=== PATIENT | female | born 1970 | race Caucasian/White ===

== ENCOUNTER → 2016-12-29 | Outpatient (CLI) | payer MEDICARE, OTHER ==
[~2016-12-29] MED LIST: ALBUTEROL17 GM INH; ALLEGRA PO; AMITRIPTYLINE H50 MG PO; AMITRYPTYLINE PO; ATARAX PO; BACLOFEN10 MG PO; BROMPHED DM PO; CIPRO PO; DICLOFENAC PO; DOXYCYCLINE PO; FERRO-TIME325 MG PO; FLEXERIL PO; FLEXERIL10 M1 PO; FLEXERIL10 MG PO; GLIPIZIDE10 MG PO; GLIPIZIDE10 MG/BOTT PO; GLUCOPHAGE XR500 MG PO; GLUCOPHAGE500 M1; GLUCOPHAGE500 MG PO; GLUCOTROL PO; HUMULIN 70/30 PE3 ML SUBQ; HYDROCODONE/HO240 ML PO; LANTUS INSULIN; LANTUS100 U/M1 SQ; LANTUS100 U/ML SUBQ; LEVAQUIN PO; LIPITOR40 MG PO; LORTAB 5/500 TA1 TA1 PO; MEDROL4 MG/DOSE- PO; METFORMIN HCL500 M1 PO; METFORMIN PO; MONTELUKAST SOD10 MG PO; NEURONTIN300 MG PO; NEURONTIN600 MG PO; OMEPRAZOLE40 M1 PO; PHENERGAN DM1 ML PO; PHENERGAN25 MG PO; PREDNISONE PO; PREDNISONE5 M1 PO; PRILOSEC PO; PRILOSEC20 MG PO; PROAIR HFA8.5 GM INH; PROVERA10 MG PO; SERTRALINE HCL100 MG PO; SIMVASTATIN20 MG PO; SINGULAIR PO; SUDAFED PO; TESSALON200 MG PO; TRADJENTA5 MG PO; TUSSIONEX PO; TYLENOL #3 PO; VICODIN 5/500 T1 TAB PO; VOLTAREN75 MG PO; ZITHROMAX PO; ZOCOR PO; ZOCOR20 MG PO; ZOFRAN ODT4 MG PO; ZOLOFT PO; ZOLOFT100 MG PO
--- NOTE | ~2016-12-29 | CT57 ---
[facility] A Service of [facility] & [facility] RADIOLOGY TEXT RESULTS PATIENT: CHANDLER RUST LOCATION: [facility] EDT : [birth year] UNIT #: [id number] AGE: [address]: Jelena Kaur SEX: F ORDER DR: [id number] [facility] [address] [place], [place] [address] [id number] O MR#: [id number] [facility] #: [id number] NAME: CHANDLER RUST : 1970 SEX: F STUDY DATE/TIME: 12/29/2016 13:49 UNIT: [facility] ROOM: STUDY DESCRIPTION: CT Chest Wo Cont Attending Physician: Jelena Kaur A.P.R.N. Referring Physician: Jelena Kaur A.P.R.N. Ordering Physician: Jelena Kaur A.P.R.N. [facility] REPORT This report is preliminary unless electronic signature is present EXAM CT of the chest without contrast INDICATION 46-year-old female with followup pulmonary nodule. Chronic cough for dqg-ph-xmebi years. History of histoplasmosis. TECHNIQUE CT of the chest was performed without contrast. Coronal and sagittal reformatted images were obtained. This CT exam was performed with one or more of the following radiation dose reduction techniques: automatic exposure control, adjustment of mA and/or kV according to patient size, and iterative reconstruction. COMPARISON 12/19/2011 as well as PET/CT from 06/08/2015 FINDINGS The nodular tubular densities within the right middle lobe are stable compared with the prior PET/CT. Stable subcentimeter nodule in the right lower lobe on image 77. Stable subcentimeter nodules within the left lower lobe and also in the left upper lobe. No new nodules. The extent of most of the nodularity is located in the right middle lobe and this is all unchanged compared with 2012 consistent with a benign chronic process. This may be related to the patient's histoplasmosis. There is no suspicious nodule. Stable thyroid nodule. No suspicious lymphadenopathy. No pleural effusion. Limited imaging of the upper abdomen is unremarkable. Bone windows are unremarkable. IMPRESSION 1. There are chronic tubular nodular densities in the right middle lobe which are unchanged dating back to 2011 and are most consistent with STS. [facility] A Service of [facility] & [facility] RADIOLOGY TEXT RESULTS PATIENT: CHANDLER RUST LOCATION: [facility] : [birth year] UNIT #: [id number] AGE: [address]: Jelena Kaur SEX: F ORDER DR: a benign process. This may be related to the patient's diagnosis of histoplasmosis. 2. There are scattered tiny nodules elsewhere in the lungs which are also stable. There is no new nodule or suspicious nodule. Dictated by... Jeffrey Cornell M.D. THIS IS AN ELECTRONICALLY VERIFIED REPORT Jeffrey Cornell M.D. at 12/30/2016 9:02 AM Ayanna TD: 12/29/2016 15:38 JOB #: [id number] MEDICAL IMAGING REPORT Page 1 of 1 COPY
== END | disposition home or self-care (01) ==
LOC: CCAT 13:26
DX: J45.20 Mild intermittent asthma, uncomplicated (principal); R05 Cough; R91.1 Solitary pulmonary nodule; R00.0 Tachycardia, unspecified; J98.4 Other disorders of lung
CPT/HCPCS: 71250

== ENCOUNTER 2017-05-08 20:38 | Emergency (ER) | payer MEDICARE, OTHER ==
[~2017-05-08] VITALS: Ht 160 cm; Wt 85.3 kg
--- NOTE | ~2017-05-08 | US85 ---
[facility] A Service of [facility] & [facility] RADIOLOGY TEXT RESULTS PATIENT: CHANDLER RUST LOCATION: SED : 70 UNIT #: [id number] AGE: [address]: Floyd Guzmán MD SEX: F ORDER DR: [id number] [address] [address] [id number] E MR#: [id number] Acc #: [id number] NAME: CHANDLER RUST : 1970 SEX: F STUDY DATE/TIME: 05/08/2017 23:06 UNIT: SED ROOM: STUDY DESCRIPTION: LE Veins Unilat or Ltd Stdy Attending Physician: Floyd Guzmán M.D. Ordering Physician: Floyd Guzmán M.D. Primary Care Physician[facility] MED[facility]AG[facility] REPORT This report is preliminary unless electronic signature is present. EXAM Right lower extremity Doppler venous ultrasound, 05/08/2017 HISTORY Right lower extremity pain and swelling for a week. TECHNIQUE Venous ultrasound examination of the right lower extremity was performed using grayscale, spectral Doppler and color flow Doppler imaging. FINDINGS The examination is negative. There is no evidence of right lower extremity deep venous thrombus from the groin to the lower calf. Visualized greater saphenous vein is also patent. IMPRESSION Negative examination. No evidence of right lower extremity deep venous thrombosis. Dictated by... Gege Senior M.D. THIS IS AN ELECTRONICALLY VERIFIED REPORT Gege Senior M.D. at 05/09/2017 9:52 PM Onesimo TD: 05/09/2017 11:55 JOB #: [id number] MEDICAL IMAGING REPORT Page 1 of 1
[~2017-05-08 20:38] MED LIST changes: -AMITRIPTYLINE H50 MG PO; -FERRO-TIME325 MG PO; -LIPITOR40 MG PO; -MONTELUKAST SOD10 MG PO; -OMEPRAZOLE40 M1 PO; -PROAIR HFA8.5 GM INH; -TRADJENTA5 MG PO
[2017-05-08] MEDS ORDERED: NEURONTIN600 MG PO (21:03)
[2017-05-08] MEDS ORDERED: METFORMIN HCL500 M1 PO ×2 (21:03→21:04)
[2017-05-08] MEDS ORDERED: LIPITOR40 MG PO (21:04)
[2017-05-08] MEDS ORDERED: FERRO-TIME325 MG PO (21:05)
[2017-05-08] MEDS ORDERED: TRADJENTA5 MG PO (21:05)
[2017-05-08] MEDS ORDERED: PROAIR HFA8.5 GM INH (21:05)
[2017-05-08] MEDS ORDERED: OMEPRAZOLE40 M1 PO (21:06)
[2017-05-08] MEDS ORDERED: SERTRALINE HCL100 MG PO (21:06)
[2017-05-08] MEDS ORDERED: MONTELUKAST SOD10 MG PO (21:07)
[2017-05-08] MEDS ORDERED: AMITRIPTYLINE H50 MG PO (21:07)
== END 2017-05-09 00:26 | disposition home or self-care (01) ==
LOC: SED 20:38
DX: R60.0 Localized edema (principal); R23.3 Spontaneous ecchymoses; Z88.8 Allergy status to other drugs, medicaments and biological substances; Z79.4 Long term (current) use of insulin; Z79.899 Other long term (current) drug therapy
CPT/HCPCS: 93971; 99283